=== PATIENT | female | born 1965 | race Caucasian/White ===

== ENCOUNTER → 2023-07-25 14:23 | Outpatient (REF) | payer OTHER, SELFPAY | LOC: HWRAD 14:23 | PROVIDERS: ATTENDING PHYSICIAN Obstetrics & Gynecology Gynecology; FAMILY PHYSICIAN Internal Medicine | DX: Z78.0 Asymptomatic menopausal state (principal); N95.0 Postmenopausal bleeding; Z12.31 Encounter for screening mammogram for malignant neoplasm of breast | CPT/HCPCS: 76830; 76856; 77063; 77067; 77080 ==

== ENCOUNTER → 2024-07-28 17:12 | Outpatient (REF) | payer OTHER, SELFPAY | LOC: WDC 17:12 | PROVIDERS: ATTENDING PHYSICIAN Obstetrics & Gynecology Gynecology | DX: Z12.31 Encounter for screening mammogram for malignant neoplasm of breast (principal) | CPT/HCPCS: 77063; 77067 ==